=== PATIENT | female | born 1955 ===

== ENCOUNTER → 2024-07-19 | Outpatient (CLI) | payer MEDICARE, BC | END | disposition home or self-care (01) | LOC: Rad HDHVI 14:48 | PROVIDERS: ATTEND Internal Medicine Cardiovascular Disease | DX: I70.0 Atherosclerosis of aorta (principal) | CPT/HCPCS: 93306 ==

== ENCOUNTER → 2024-07-29 | Outpatient (CLI) | payer MEDICARE, BC ==
[~2024-07-29] VITALS: Ht 154.9 cm; Wt 76.2 kg
--- NOTE | 2024-08-06 10:12 | DVHSR ---
APPROVED REPORT Exam: Nuclear Stress Test Indication: Screening for CAD Ht: 5 ft 1 in Wt: 168 lbs BSA: 1.75 m2 HR: 60 bpm BP: 133/81 mmHg BMI: 31.73 Rhythm: NSR Medical History Medical History: Abnormal EKG Medications: Veozah Allergies: No known drug allergies Stress Test Details Stress Test: Exercise stress testing was performed using a Martin protocol. HR Resting HR: 60 bpmMax Heart Rate (APMHR): 153.692535 bpm Max HR Achieved: 141 bpmTarget HR (85% APMHR): 130.340613 bpm % of APMHR: 92.16 Recovery HR: 74 bpm HR response to stress: Normal HR response to stress BP Resting BP: 133/81 mmHg Max BP: 209/72 mmHg Recovery BP: 156/70 mmHg BP response to stress: Exaggerated response ECG Resting ECG: Sinus Rhythm Stress ECG: Sinus Tachycardia Arrhythmia: PACs Recovery ECG: Sinus Rhythm Clinical Reason for Termination: Target HR achieved Stress Symptoms: None Exercise duration: 8 min sec Exercise capacity: 10.1 METs Stress ECG Conclusion NON ISCHEMIC ECG RESPONSE NON ISCHEMIC CARDIOLITE STRESS EF >55% LESS THAN 10% LIKELIHOOD FOR STRESS INDUCED ISCHEMIA NM EXAM: Myocardial Perfusion REST/STRESS Imaging Protocol: Rest Tc-99m/Stress Tc-99m 1 day Resting Data Rest SPECT myocardial perfusion imaging was performed in supine position 30 minutes following the int ravenous injection of 10.99 mCi of Tc-99m Sestamibi. Time of rest injection: 1440 Date: 07/29/2024 Time of rest imagin Date: 07/29/2024 Administration Route: IV Administration Site: Left AC Exercise Stress At peak stress, the patient was injected intravenously with 29.6 mCi of Tc-99m Sestamibi. Time of stress injection: 1625 Date: 07/29/2024 Time of stress imagin Date: 07/29/2024 Administration Route: IV Administration Site: Left AC Heart Rate at time of stress injection: 141 bpm. Patient continued to exercise for 1 minute(s). Gated Stress SPECT was performed 15 minutes after stress injection. The images were gated to evaluate regional wall motion and calculate left ventricular ejection fracti on. Comments Cardiolite injection at 7 minutes, 11 seconds into test. Study Data Post stress, the left ventricular ejection was >55%.. Nuclear Conclusion NON ISCHEMIC ECG RESPONSE NON ISCHEMIC CARDIOLITE STRESS EF >55% LESS THAN 10% LIKELIHOOD FOR STRESS INDUCED ISCHEMIA
== END | disposition home or self-care (01) ==
LOC: Rad HDHVI 14:31
PROVIDERS: ATTEND Internal Medicine Cardiovascular Disease
DX: I49.1 Atrial premature depolarization (principal); R00.0 Tachycardia, unspecified; Z13.6 Encounter for screening for cardiovascular disorders; R00.1 Bradycardia, unspecified; R94.31 Abnormal electrocardiogram [ECG] [EKG]; I25.84 Coronary atherosclerosis due to calcified coronary lesion
CPT/HCPCS: 78452; 93017; A9500; 96374